=== PATIENT | female | born 1995 | race Caucasian/White ===

== ENCOUNTER 2021-10-24 08:44 | Outpatient (CLI) | payer SELFPAY ==
[2021-10-24 10:13] LABS: HCG Quantitative 83.13 mIU/mL
[2021-10-24 10:51] LABS: Progesterone 25.47 ng/mL
== END 2021-10-24 08:45 | disposition home or self-care (01) ==
PROVIDERS: Visit Provider Midwife
DX: O46.90 Antepartum hemorrhage, unspecified, unspecified trimester (principal); Z3A.00 Weeks of gestation of pregnancy not specified
CPT/HCPCS: 36415; 84144; 84702

== ENCOUNTER 2021-10-26 08:43 | Outpatient (CLI) | payer SELFPAY ==
[2021-10-26 10:28] LABS: Progesterone 21.12 ng/mL
== END 2021-10-26 08:44 | disposition home or self-care (01) ==
PROVIDERS: Visit Provider Midwife
DX: Z01.89 Encounter for other specified special examinations (principal)
CPT/HCPCS: 84144; 84702

== ENCOUNTER 2021-11-14 14:22 | Outpatient (CLI) | payer SELFPAY ==
--- NOTE | 2021-11-14 14:31 | US_ITS ---
WS: [id number] ULTRASOUND EARLY TECHNIQUE: Transabdominal sonography of the pelvis was performed. Followed by transvaginal sonography to better evaluate the uterus and ovaries. CLINICAL INFORMATION: DATING LMP: 09/19/2021 Beta hCG: Unknown. COMPARISON: None. FINDINGS: UTERUS AND GESTATIONAL SAC Intrauterine gestations: Single interuterine gestation with pole and cardiac activity. Estimated gestational age: 6w4d Estimated delivery July 06, 2022 Yolk sac: 0.3 cm. Yznaga rump length (CRL): 0.7 cm. heart motion: 122 BPM. Subchorionic hemorrhage: None. Normal cervix. Small amount of complex fluid or blood products in the endometrium measuring 1.4 x 0.3 x 0.3 cm. Adryan mmend short interval follow-up. OVARIES Right ovary: Normal. Left ovary: Complex left ovarian cyst with a few septations measuring 1.6 x 1.4 x 1.5 cm FREE FLUID Small amount of fluid about the left ovary. US/US OB <=14 wk fetus w transvag IMPRESSION: 1. Single live intrauterine with pole and cardiac activity. 2. Estimated gestational age; 6w4d 3. Small amount of complex fluid or blood products in the endometrium measurin g 1.4 x 0.3 x 0.3 cm. Recommend short interval follow-up. 4. Complex left ovarian cyst with a few septations measuring 1.6 x 1.4 x 1.5 c m. Normal right ovary.
== END 2021-11-14 14:23 | disposition home or self-care (01) ==
PROVIDERS: Visit Provider Family Medicine
DX: Z34.91 Encounter for supervision of normal pregnancy, unspecified, first trimester (principal); Z3A.01 Less than 8 weeks gestation of pregnancy
CPT/HCPCS: 76801; 76817

== ENCOUNTER 2021-11-21 14:47 | Outpatient (CLI) | payer OTHER, SELFPAY ==
--- NOTE | 2021-11-21 14:52 | US_ITS ---
WS: [id number] EARLY OBSTETRICAL ULTRASOUND (<14 WEEKS). HISTORY: SUPERVISION OF NORMAL 1ST TRIMESTER COMPARISON: 11/14/2021 Single intrauterine gestational sac is identified. Cardiac activity at 153 BPM. Long View-rump length abhishek sures 1.4 cm which corresponds to a gestation of 7w5d. Normal-appearing yolk sac and amnion demonstra mario alberto. Tinysubchorionic hemorrhage.Near complete resolution of the subchorionic hemorrhage described on the prior study. This area now measures 5 x 7 x 3 mm. No free fluid. Minimally complex cyst in the LEFT ovary consistent with corpus luteum of . Cyst measures 1. 4 x 1.5 x 1.6 cm. Overall corpus luteum has slightly decreased in size since the prior study. US/US OB <=14 wk fetus w transvag IMPRESSION: 1. Single intrauterine gestation of 7 weeks 5 days with an EDC of 07/05/2022. 2. Resolving subchorionic hemorrhage. Very tiny subchorionic hemorrhage measur es 5 x 7 x 3 mm today.
== END 2021-11-21 14:48 | disposition home or self-care (01) ==
LOC: RAD 14:50
PROVIDERS: Visit Provider Family Medicine
DX: Z34.91 Encounter for supervision of normal pregnancy, unspecified, first trimester (principal)
CPT/HCPCS: 76801; 76817

== ENCOUNTER 2022-02-22 06:52 | Emergency (ER) | payer OTHER, SELFPAY ==
[2022-02-22 06:55] VITALS: BP 125/86; PULSE 95; RESP 18; TEMP 36.6; O2SAT 100; BMI 25.2
--- NOTE | 2022-02-22 07:00 | USCV_ITS ---
Sandy Colon Age: 26 Gender: F : 1995 Exam Date: 02/22/2022 07:46 Ordering Phys: Blaine Charles DO Technologist: QASIM Exam Location: [facility] [place] Indication: Patient is 20 weeks . Noticed LLE edema x 24 hrs. No hx DVT. HISTORY: Patient is 20 weeks . Noticed LLE edema x 24 hrs. No hx DVT. PROCEDURES: Venous duplex imaging was performed in bilateral lower extremities. The venous duplex Doppler examination of both lower extremities was performed in the standard fashion. The following venous structures were evaluated: common femoral vein, profunda vein, proximal portion of the greater saphenous vein, superficial femoral vein, and the popliteal vein. In addition, the posterior tibial and peroneal veins were evaluated. FINDINGS: Extensive occlusive DVT left lower extremity from the iliac vein trhough the distal SFA. Acute DVT in the profunda and junction of GSV. Distal to the knee no DVT on the left. No DVT right lower extremity. CONCLUSIONS Acute extensive left DVT as above. Dr. Marisol Cortes DO (Electronically Signed) Final Date: 22 February 2022 09:15 S
[2022-02-22 07:12] VITALS: BP 125/86; PULSE 95; RESP 18; TEMP 36.6; O2SAT 100
--- NOTE | 2022-02-22 07:36 | W.ED.EXTPRO ---
HPI - Extremity Problem General: Chief complaint: Extremity Problem,Nontraumatic Stated complaint: Left leg groin pain Time Seen by Provider: 02/22/22 07:00 Source: patient Mode of arrival: ambulatory Limitations: no limitations History of Present Illness: 26-year-old female who is G1, P0 at 20 weeks 6 days gestation reportedly confirmed by ultrasound. She is receiving care through [facility] in [place]. Patient presents emergency room with complaint of left lower leg swelling and aching began yesterday. 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 She denies any shortness of breath or chest pain she not previously had any DVTs or thrombosis of any kind she is not on any anticoagulation. MD Complaint: extremity swelling Onset (ago): day(s) Pain Consistency: constant Location: left and lower extremity Quality: aching Relieving factors: nothing Exacerbating factors: nothing Associated symptoms: Deny arthralgias, chest pain, fever(s), myalgias, rash or short of breath Context: other (Currently at 20 weeks 6 days) Review of Systems Const: Denies: fever(s), chills or body aches ENMT: Denies: throat pain, ear or mastoid pain, nasal discharge or nasal congestion Card: Denies: chest pain Resp: Denies: dyspnea, productive cough or non-productive cough GI: Denies: abdominal pain, nausea, vomiting, hematemesis, coffee ground emesis, diarrhea, constipation, bloating, hematochezia or melena : Denies: flank pain, difficulty voiding, dysuria, urinary frequency or urinary urgency Skin/Breast: Denies: rash [facility] PFSH: Medical History Surgical History No significant past surgical history Social History Smoking and tobacco status: never smoked Alcohol intake: never Physical Exam Const: COMMON NORMALS: no acute distress GENERAL APPEARANCE: cooperative and comfortable ORIENTATION/CONSCIOUSNESS: Yes awake, Yes oriented to person, Yes oriented to place and Yes oriented to time HENMT: COMMON NORMALS: normocephalic, atraumatic and hearing grossly normal bilaterally HEAD & SCALP: normocephalic and atraumatic Neck/C-Spine: COMMON NORMALS: no JVD Resp: COMMON NORMALS: normal respiratory effort, No retractions, No use of accessory muscles and clear to auscultation bilaterally AUSCULTATION: clear to auscultation bilaterally Cardio: COMMON NORMALS: no JVD, regular rate, regular rhythm and No murmurs present (Cardio) RATE: regular rate RHYTHM: regular rhythm GI: COMMON NORMALS: Soft to palpation and No hepatosplenomegaly present AUSCULTATION: Yes normoactive bowel sounds PALPATION: Yes Soft to palpation, No Tenderness to palpation present (GI), No Guarding due to palpation present (GI) and Yes No hepatosplenomegaly present OTHER: Abdominal exam consistent with 20-week with fundus of the uterus palpable at the umbilicus Extremity: COMMON NORMALS: normal to inspection, capillary refill normal and no calf tenderness GENERAL: Yes edema (Mild swelling left lower extremity no pitting edema) OTHER: Negative Homans' sign Neuro: SENSORIUM/ORIENTATION: Yes oriented to person, Yes oriented to place and Yes oriented to time Skin: COMMON NORMALS: no rashes or lesions noted GENERAL SKIN EXAM: no rashes or lesions noted Course Vital Signs: Vital signs: Vital Signs Temperature 97.9 F 02/22/22 07:12 Pulse Rate 91 02/22/22 09:00 Respiratory Rate 16 02/22/22 09:00 Blood Pressure 118/78 02/22/22 09:00 Pulse Oximetry 98 02/22/22 09:00 MDM - Extremity (Nontraumatic) Medical Decision Making Ultrasound confirms DVT. Is actually rather extensive. Patient has not had any recent surgery she is remained active she is not on any hormone therapy. No obvious precipitating cause. We will start her on Lovenox 1 mg/kg twice daily. Patient has been seeing a manufacture specialist at this point we will get her set up to see one of the obstetricians for management further evaluation and precipitating cause Long lengthy discussion with the patient reviewed indications for return patient expressed understanding arrangements made for initial evaluation by obstetrics within the week. Did discuss with Dr. Nassar who is on-call for OB today. Medical Records I reviewed the patient's medical records. Lab Data I reviewed the patient's lab results. : 02/22/22 07:26 04/20/22 07:26 Laboratory Results WBC 10.0 10^3/uL (4.0-10.0) 02/22/22 07: RBC 3.63 10^6/uL (4.1-5.3) L 02/22/22 07: Hgb 11.0 g/dL (11.5-15.3) L 02/22/22 07: Hct 33.2 % (37.0-47.0) L 02/22/22 07: MCV 91.5 fl (81-99) 02/22/22 07: MCH 30.3 pg (28.0-34.0) 02/22/22 07: MCHC 33.1 g/dL (30.0-36.0) 02/22/22 07: RDW 13.0 % (12.1-15.1) 02/22/22 07: Plt Count 244 10^3/cmm (130-400) 02/22/22: MPV 10.3 fL (7.4-10.4) 02/22/22 07: Neut % (Auto) 77.7 % 02/22/22 07: Lymph % (Auto) 12.8 % 02/22/22 07: Sioux % (Auto) 7.1 % 02/22/22 07: Eos % (Auto) 1.2 % 02/22/22 07: Baso % (Auto) 0.6 % 02/22/22: Neut # (Auto) 7.75 10^3/uL (1.8-7.7) H 02/22/22 07: Lymph # (Auto) 1.3 10^3/uL (0.8-4.8) 02/22/22 07: Sioux # (Auto) 0.7 10^3/uL (0.2-0.9) 02/22/22 07: Eos # (Auto) 0.1 10^3/uL (0.0-0.8) 02/22/22 07: Baso # (Auto) 0.1 10^3/uL (0.0-0.1) 02/22/22: Nucleated RBC % (auto) 0 % 02/22/22 07:26 Nucleated RBCs # 0.0 /100WBC 02/22/22 07:26 PT 13.80 SECONDS (12.1-14.9) 02/22/22 07:26 INR 1.03 (0.8-1.2) 02/22/22 07:26 APTT 30.1 SECONDS (23.9-36.7) 02/22/22 07:26 Sodium 135 mmol/L (136-145) L 02/22/22 07:26 Potassium 3.3 mmol/L (3.5-5.1) L 02/22/22 07:26 Chloride 103 mmol/L (98-107) 02/22/22 07:26 Carbon Dioxide 21 mmol/L (22-29) L 02/22/22 07:26 Anion Gap 14.3 (5-19) 02/22/22 07:26 BUN 5 mg/dL (6-20) L 02/22/22 07:26 Creatinine 0.4 mg/dL (0.5-0.9) L 02/22/22 07:26 GFR Calculation 192.9 mL/min (90-130) H 02/22/22 07:26 Glucose 91 mg/dL (65-115) 02/22/22 07:26 Calculated Osmolality 277 mOsm/kg (285-295) L 02/22/22 07:26 Calcium 8.8 mg/dL (8.5-10.5) 02/22/22 07:26 Total Bilirubin 0.4 mg/dL (0.15-1.2) 02/22/22 07:26 AST 26 U/L (0-32) 02/22/22 07:26 ALT 18 U/L (0-33) 02/22/22 07:26 Alkaline Phosphatase 69 IU/L (35-105) 02/22/22 07:26 Total Protein 6.1 g/dL (6.6-8.7) L 02/22/22 07:26 Albumin 3.4 g/dL (3.5-5.2) L 02/22/22 07:26 Globulin 2.7 g/dL (1.3-4.6) 02/22/22 07:26 Discharge Plan Discharge Patient Disposition: Home Clinical Impression: , Deep vein thrombosis of lower extremity Condition: Stable Prescriptions: New Lovenox 80 mg/0.8 mL syringe 80 mg SUBCUT Q12H Qty: 8 6RF Rx Instructions: DVT Discharge Orders: Discharge ED (Routine); Ordered 02/22/22 Ordered By: Blaine Charles Referrals: Eloise Schaffer MD [Physician] - (establish OB care - LE DVT. May see midlevel at first visit.) Discharge Diet: Usual diet Discharge Activity: Increase activity as tolerated Patient Instructions: Opioid Safety Coding Level of Care Code ED Bindery Cutter Operator for Chg Fwd Exam Comprehensive
[2022-02-22 07:54] LABS: Alanine Aminotransferase 18 U/L (0-33); Albumin Level 3.4 g/dL (3.5-5.2); Alkaline Phosphatase 69 IU/L (35-105); Anion Gap 14.3 (5-19); Aspartate Amino Transferase 26 U/L (0-32); Blood Urea Nitrogen 5 mg/dL (6-20); Calcium 8.8 mg/dL (8.5-10.5); Carbon Dioxide 21 mmol/L (22-29); Chloride 103 mmol/L (98-107); Globulin 2.7 g/dL (1.3-4.6); Glomerular Filtration Rate 192.9 mL/min (90-130); Glucose 91 mg/dL (65-115); Osmolality Calculated 277 mOsm/kg (285-295); Potassium 3.3 mmol/L (3.5-5.1); Sodium 135 mmol/L (136-145); Total Bilirubin 0.4 mg/dL (0.15-1.2); Total Protein 6.1 g/dL (6.6-8.7)
[2022-02-22 08:01] LABS: Basophils # 0.1 10^3/uL (0.0-0.1); Basophils % 0.6 %; Eosinophils # 0.1 10^3/uL (0.0-0.8); Eosinophils % 1.2 %; Hematocrit 33.2 % (37.0-47.0); Lymphocytes # 1.3 10^3/uL (0.8-4.8); Lymphocytes % 12.8 %; Mean Corpuscular HGB Conc 33.1 g/dL (30.0-36.0); Mean Corpuscular Hemoglobin 30.3 pg (28.0-34.0); Mean Corpuscular Volume 91.5 fl (81-99); Mean Platelet Volume 10.3 fL (7.4-10.4); Monocytes # 0.7 10^3/uL (0.2-0.9); Monocytes % 7.1 %; Neutrophils # 7.75 10^3/uL (1.8-7.7); Neutrophils % 77.7 %; Nucleated Red Blood Cells % 0 %; Platelet Count 244 10^3/cmm (130-400); Red Blood Count 3.63 10^6/uL (4.1-5.3)
[2022-02-22 08:10] LABS: INR 1.03 (0.8-1.2); Partial Thromboplastin Time 30.1 SECONDS (23.9-36.7)
[2022-02-22 09:00] VITALS: BP 118/78; PULSE 91; RESP 16; O2SAT 98
[2022-02-22] MEDS: enoxaparin 80 mg/0.8 mL Syringe 70 MG SUBCUT (09:27)
--- NOTE | 2022-02-22 10:10 | DCPLANNER ---
Addendum entered by Cathy Bailey 03/08/22 21:33: Patient had a follow up appointment scheduled with [facility] - patient did attend appointment. Addendum entered by Cathy Bailey 02/23/22 07:44: Patient has a follow up appointment scheduled for Sunday, March 01, 2022 at 2:[address] Nassar at [facility]. Clinic will call patient with appointment information. Original Note: global marketing manager was asked to schedule a follow up appointment for patient with [facility]. global marketing manager called the [facility] care clinic, spoke with Tao, gave clinic patients information. global marketing manager was told that patients information would be printed and reviewed. Clinic will call patient with appointment information.
== END 2022-02-22 10:39 | disposition home or self-care (01) ==
PROVIDERS: Emergency Provider Family Medicine
DX: O22.32 Deep phlebothrombosis in pregnancy, second trimester (principal); M79.89 Other specified soft tissue disorders; I82.422 Acute embolism and thrombosis of left iliac vein; Z3A.20 20 weeks gestation of pregnancy
CPT/HCPCS: 80053; 85025; 85610; 85730; 93970; 96372; 99283; J1650

== ENCOUNTER → 2022-03-01 14:01 | Outpatient (BNVA) | payer OTHER, SELFPAY | PROVIDERS: Visit Provider Obstetrics & Gynecology | DX: Z34.90 Encounter for supervision of normal pregnancy, unspecified, unspecified trimester (principal); I82.409 Acute embolism and thrombosis of unspecified deep veins of unspecified lower extremity; Z3A.00 Weeks of gestation of pregnancy not specified | CPT/HCPCS: 81291; 84315; 85210; 85300; 85613; 85730 ==

== ENCOUNTER → 2022-04-14 14:12 | Outpatient (BNVA) | payer OTHER, SELFPAY | PROVIDERS: Visit Provider Obstetrics & Gynecology | DX: O09.899 Supervision of other high risk pregnancies, unspecified trimester (principal); Z67.91 Unspecified blood type, Rh negative; O26.899 Other specified pregnancy related conditions, unspecified trimester; Z3A.00 Weeks of gestation of pregnancy not specified | CPT/HCPCS: 81000; 82950; 85025; 86850 ==

== ENCOUNTER 2022-05-11 14:21 | Outpatient (CLI) | payer OTHER, SELFPAY ==
--- NOTE | 2022-05-11 14:27 | US_ITS ---
WS: [id number] BIOPHYSICAL PROFILE AND LIMITED OB. AMNIOTIC FLUID INDEX. HISTORY: O09.899 - Supervision of other high risk pregnancies, COMPARISON: 11/14/2021 and 11/21/2021 Presentation: Vertex. Cervix: Closed and normal length. Placenta: Anterior, no previa or abruption. Grade: 3 HEART: FHR of 136BPM. measurements: BPD = 8.6 cm = 34w3d; 96 percentile for age. HC = 31.1 cm = 34w5d; 84th percentile for age. AC = 28.3 cm = 32w2d; 59th percentile for age. FL = 6.3 cm = 32w4d; 55th percentile for age. JAYA: 15.8 centimeters; 50th percentile. EFW: 2063g; 71st %. AGA by ultrasound: 33w4d ARCENIO by ultrasound: 06/25/2022 Measurements are near concordant. Head circumference and BPD are measuring slightly greater than the abdominal circumference for age. Biophysical profile: Parameters are as follows: Breathin Movement: 2 Tone: 2 Fluid volume: 2 US/US OB BPP wo NST [id number] IMPRESSION: 1. Biophysical profile score: 8/8. 2. Single intrauterine gestation of 33w4d and 06/25/2022. Biometry measuring 10 days greater than age than expected as compared to the first trimester ultraso und. 3. BPD and head circumference measuring approximately 2 weeks greater than the head measurements. Continued close follow-up for asymmetric growth retardation. 4. Biophysical profile 8 out of 8. 5. Amniotic fluid index at the 50th percentile.
== END 2022-05-11 14:22 | disposition home or self-care (01) ==
PROVIDERS: Visit Provider Obstetrics & Gynecology
DX: O09.899 Supervision of other high risk pregnancies, unspecified trimester (principal); Z3A.33 33 weeks gestation of pregnancy
CPT/HCPCS: 76819; 81000; 87086

== ENCOUNTER 2022-05-25 07:09 | Outpatient (CLI) | payer OTHER, SELFPAY ==
--- NOTE | 2022-05-25 07:15 | US_ITS ---
WS: [id number] BIOPHYSICAL PROFILE AMNIOTIC FLUID HISTORY: O22.30 - Deep phlebothrombosis in , unspecified ... COMPARISON: 05/16/2022 Cardiac activity: 150 bpm. Cervix: closed. Placenta: Anterior, no previa or abruption. Placenta grade: Late grade 2. Parameters are as follows: Breathin Movement: 2 Tone: 2 Fluid volume: 2 Amniotic fluid index: 16.1 cm which is near the 50th percentile. Largest vertical pocket of amniotic fluid is 4.9 cm. US/US OB BPP wo NST [id number] IMPRESSION: 1. Biophysical profile score: 8/8. 2. Anterior placenta, grade 2.
== END 2022-05-25 07:10 | disposition home or self-care (01) ==
LOC: RAD 07:09
PROVIDERS: Visit Provider Obstetrics & Gynecology
DX: O22.30 Deep phlebothrombosis in pregnancy, unspecified trimester (principal); O09.899 Supervision of other high risk pregnancies, unspecified trimester
CPT/HCPCS: 76819; 84315; 85025

== ENCOUNTER → 2022-06-08 15:09 | Outpatient (BNVA) | payer OTHER, SELFPAY | PROVIDERS: Visit Provider Obstetrics & Gynecology | DX: O09.899 Supervision of other high risk pregnancies, unspecified trimester (principal); Z3A.00 Weeks of gestation of pregnancy not specified | CPT/HCPCS: 82950; 84315; 87081; 87086 ==

== ENCOUNTER 2022-06-15 06:00 | Outpatient (CLI) | payer OTHER, SELFPAY | END 2022-06-15 06:01 | disposition home or self-care (01) | LOC: RAD 08-31 07:22 | PROVIDERS: Visit Provider Obstetrics & Gynecology | DX: O09.899 Supervision of other high risk pregnancies, unspecified trimester (principal) | CPT/HCPCS: 84315; 87086 ==

== ENCOUNTER 2022-06-28 22:22 | Inpatient (IN) | payer OTHER, SELFPAY ==
[2022-06-28 21:51] VITALS: BP 113/58; PULSE 89
[2022-06-28 22:16] VITALS: RESP 18
[2022-06-28 22:27] VITALS: BP 121/69; PULSE 79
[2022-06-28 23:02] VITALS: BMI 26.2
[2022-06-28 23:18] VITALS: BP 112/73; PULSE 72
[2022-06-28] MEDS: ondansetron 2 mg/ML SDV 2 mL 4 MG IVP (23:36)
--- NOTE | 2022-06-28 23:52 | PC.NURSE ---
This nurse at bedside going over plan with patient and significant other. Pt states she spoke with Dr. Nassar about eating and drinking while in labor and it was okay'd through Dr. Nassar. This nurse reported to the pt that it was unsafe to do so and anesthesia is not okay with this practice due to the possibility of aspiration when intubating. Pt reported she understands the risks and understands what this nurse is saying but states she is going to eat when she wants.
[2022-06-29] VITALS (10 sets, daily range): BP systolic 109–131; BP diastolic 58–76; PULSE 63–81; RESP 16; TEMP 36.5
[2022-06-29 00:08] LABS: Basophils # 0.1 10^3/uL (0.0-0.1); Basophils % 0.5 %; Eosinophils # 0.1 10^3/uL (0.0-0.8); Eosinophils % 0.7 %; Hematocrit 35.3 % (37.0-47.0); Hemoglobin 11.7 g/dL (11.5-15.3); Lymphocytes % 24.6 %; Mean Corpuscular HGB Conc 33.1 g/dL (30.0-36.0); Mean Corpuscular Hemoglobin 28.1 pg (28.0-34.0); Mean Corpuscular Volume 84.9 fl (81-99); Mean Platelet Volume 12.6 fL (7.4-10.4); Monocytes % 8.2 %; Neutrophils # 7.71 10^3/uL (1.8-7.7); Neutrophils % 63.9 %; Nucleated Red Blood Cells % 0 %; Platelet Count 289 10^3/cmm (130-400); Red Blood Count 4.16 10^6/uL (4.1-5.3); Red Cell Distribution Width 14.2 % (12.1-15.1); White Blood Count 12.1 10^3/uL (4.0-10.0)
[2022-06-29] MEDS: alum-mag-hydroxide-sime 30 mL UDC PO (00:47)
[2022-06-29] MEDS: lactated ringers 1,000 ML 999 ML IV (01:50)
--- NOTE | 2022-06-29 04:00 | PM.OBGYHP ---
Providers/Chief Complaint Admitting Physician: Enid Cortes MD Primary RECORD RETRIEVAL SPECIALIST: Mahogany Nassar MD Chief Complaint: POSSIBLE ROM HPI RECORD RETRIEVAL SPECIALIST History of Present Illness Sandy Colon is a 27 year old 000 with an IUP 38W6D who presented with a complaint of LOF and painful uterine contractions that occur every 3-5 minutes. She rates her pain an 8 out of 10. She initially experienced loss of fluid at this evening (06/28/2022). This is complicated by DVT at 20 weeks gestation and associated MTFHR deficiency. She is currently being anticoagulated with heparin. Prior to 36 weeks she was being anticoagulated with Lovenox. Initially received care with a manager of community relations but was transferred to the care of Dr. Nassar after the diagnosis of MTHFR deficiency. She is GBS negative. Tonight she is accompanied by her , Danny and her mother, Bri. The couple is expecting a son. Anticipates circumcision for their son at approximately 8 days of age. Anticipates breast-feeding exclusively and resuming natural family planning. Present Details : 1 Para: 0 Medical complications OB: other Other Details: Experienced a DVT during this gestation at 20 weeks and was found to have MT FHR deficiency Labs Rubella: Immune RPR: Negative GBS: Negative Review of Systems Narrative: Endorses painful uterine contraction, endorses loss of fluid, denies vaginal bleeding, denies headache, denies right upper quadrant pain, denies blurred vision or seeing spots in her vision, In mild distress secondary to pain however denies anxiety, denies depression Const: Reports: fatigue and malaise; Denies: fever(s) or chills ENMT: Denies: throat pain, odynophagia, hoarseness or ear or mastoid pain Card: Denies: chest pain, palpitations, irregular heart rhythm, edema, swelling of feet/ankles, dyspnea on exertion or orthopnea Resp: Denies: dyspnea, productive cough or non-productive cough GI: Reports: vomiting; Denies: nausea, diarrhea or constipation : Denies: flank pain, difficulty voiding, dysuria or urinary frequency Musc: Denies: back pain, extremity swelling or limited range of motion Skin/Breast: Reports: pruritus; Denies: rash Neuro: Denies: headache(s) Psych: Reports: depression; Denies: anxiety Jayson/Lymph: Reports: easy bruising Medications/Allergies Home Medications Medication Instructions Recorded Confirmed Last Taken Type [id number] 400 mcg-om3 35 mg-dha 25 1 tab PO DAILY 03/01/22 06/28/22 06/27/22 History mg-epa 5 mg-fish oil chewable tablet levomefolate 15 mg-algal oil 1 cap PO DAILY #90 caps 03/17/22 06/28/22 06/28/22 Rx 90.314 mg capsule (Deplin (algal oil)) acetaminophen 325 mg tablet 650 mg PO Q6H PRN mild pain for 06/30/22 Unknown Rx temp >100.4. 60 days #40 tabs docusate sodium 100 mg capsule 100 mg PO BID 30 days #60 caps 06/30/22 Unknown Rx enoxaparin 80 mg/0.8 mL 70 mg (0.7 mL) SUBCUT Q12H 42 days 06/30/22 Unknown Rx subcutaneous syringe #58.8 mL ibuprofen 800 mg tablet 800 mg PO TID 60 days #180 tabs 06/30/22 Unknown Rx modified lanolin 100 % topical 1 applic topical PRN PRN Dryness 06/30/22 Unknown Rx cream (Lanolin (HPA)) 365 days #1 g multivitamin no.51-ferrous 1 cap PO DAILY 365 days #90 caps 06/30/22 Unknown Rx fumarate 106.5 mg-folic acid 1 mg capsule (-U) Allergies Allergy/AdvReac Type Severity Reaction Status Date / Time No Known Allergies Allergy Verified 06/28/22 23:05 PFS RECORD RETRIEVAL SPECIALIST PFSH: Medical History Surgical History No significant past surgical history Family History Family/Other Breast cancer maternal aunt, diagnosed in her 50s Brother Diabetes x2 Sister Diabetes Father Hyperlipidemia Denies family history of Colon cancer Ovarian cancer Heart disease Hypertension Uterine cancer Thyroid condition Stroke Social History Smoking and tobacco status: never smoked Alcohol intake: never Contraception: Contraception History Comment: Natural family planning History History History 1 Term Miscarriages/Ectopic Living Children Past Pregnancies Del. Date GA/Weeks Outcome Route Wt Inf Gender Labor Lgth Comp. Anesthesia Location Unknown 39 live - full term Vaginal 8 lb 1.103 oz 12 hours 37 minutes [facility] ARCENIO Calculator Estimated Delivery Date Method Current WG Current Estimate 07/06/22 Ultrasound #1 39w 4d Other Estimates 06/26/22 LMP (Certain) 41w 0d Expected Delivery Route/Plan Vitals/I&O/Wt Last Vital Signs Selected Entries 06/29/22 11:08 06/29/22 11:23 06/29/22 11:38 Temperature Pulse Rate Respiratory Rate Blood Pressure 123/72 118/59 109/62 Pulse Oximetry 06/29/22 20:38 06/30/22 04:05 06/29/22 20:38 Temperature 97.7 F 97.8 F 97.7 F Pulse Rate 63 53 L 63 Respiratory Rate 16 19 H 16 Blood Pressure 109/62 Pulse Oximetry 99 06/29/22 06/29/22 06/29/22 06:59 14:59 22:59 Intake Total 500 / 500 500 / 500 Balance 500 / 500 500 / 500 Weight last 48 hrs Weight 158 lb Physical Exam Narrative: Mild distress secondary to 8 out of 10 pain : MANUAL OB EXAM: dilated, effaced, station and other (6 / 90 / -2 / Cephalic / grossly ruptured) Data : 06/29/22 22:15 A&P Assessment and plan (1) MTHFR deficiency complicating : Status: Acute (2) Rh negative state in antepartum period: Status: Acute (3) Alteration in comfort associated with uterine contractions: Status: Acute (4) 39 weeks gestation of : Status: Acute (5) SROM (spontaneous rupture of membranes): Now in active labor. Category I FHT and anticipate . Declines Epidural at this time. Status: Acute Attestations Medical Necessity Statement*: Management of labor, delivery, and establish anticoag state Coding Level of Care Code Acute Sports Leadership Instructor for g Fwd Diagnoses MTHFR deficiency complicating O99.280; E72.12 Rh negative state in antepartum period O26.899; Z67.91 Alteration in comfort associated with uterine contractions N85.8 39 weeks gestation of Z3A.39 SROM (spontaneous rupture of membranes)
--- NOTE | 2022-06-29 07:46 | PM.OBGYPN ---
POT FIREMAN Subjective Subjective: Interval history: Hospital Course Hospital Course Sandy is a 27 y/o 001 term. This gestation has been complicated by DVT at ~ 20 weeks gestation, newly diagnosed MTFHR deficiency, and Rh negative status. Initially admitted after experiencing term SROM and spontaneous onset of labor. Expecting a son, Marco Colon. Now experiencing significant pain while still declines epidural is willing to accept IV fentanyl. Labor: Station: +2 Amniotic Membrane Status: Leaking Monitor Mode: External Contraction Pattern: Regular Status: Category I Vitals/I&O/Wt Last Vital Signs Temp Pulse Resp BP Pulse Ox O2 Del Method Selected Entries 06/28/22 21:51 Pulse Rate 89 Blood Pressure 113/58 06/29/22 06/30/22 06/30/22 22:59 06:59 14:59 Intake Total 0 / 500 360 / 860 Output Total 550 / 550 Balance -550 / -50 360 / 310 Weight last 48 hrs Weight 158 lb Physical Exam Narrative: SVE: 8/80/0 Data : 06/29/22 22:15 A&P Assessment and plan (1) SROM (spontaneous rupture of membranes): Continuous heart tone monitoring Fentanyl 100 mcg Anticipate Status: Acute (2) Alteration in comfort associated with uterine contractions: Status: Acute (3) 39 weeks gestation of : Status: Acute (4) Rh negative state in antepartum period: Status: Acute Attestations Medical Necessity Statement*: Labor management, delivery, achieving anticoagulant both state secondary to MTFHR deficiency Coding Level of Care Code Acute Railway Signal Electrician for [facility] Fwd Diagnoses SROM (spontaneous rupture of membranes) Alteration in comfort associated with uterine contractions N85.8 39 weeks gestation of Z3A.39 Rh negative state in antepartum period O26.899; Z67.91
[2022-06-29] MEDS: fentaNYL 50 mcg/mL INJ 2mL 100 MCG IVP (07:54)
[2022-06-29] MEDS: fentaNYL 50 mcg/mL INJ 2mL IVP (09:58)
[2022-06-29] MEDS: lidocaine 2% INJ 20 mL INJECTION (10:00)
[2022-06-29] MEDS: oxytocin 30 UNIT/500 ML BAG 600 UNIT IV (10:05)
--- NOTE | 2022-06-29 10:40 | PM.OBGYHP ---
Providers/Chief Complaint Admitting Physician: Enid Cortes MD Chief Complaint: POSSIBLE ROM HPI COMBUSTION ENGINEER History of Present Illness Sandy Colon is a 27 year old female Present Details : 1 Para: 0 Labs Rubella: Immune RPR: Negative GBS: Negative Medications/Allergies Home Medications Medication Instructions Recorded Confirmed Last Taken Type [id number] 400 mcg-om3 35 mg-dha 25 1 tab PO DAILY 03/01/22 06/28/22 06/27/22 History mg-epa 5 mg-fish oil chewable tablet levomefolate 15 mg-algal oil 1 cap PO DAILY #90 caps 03/17/22 06/28/22 06/28/22 Rx 90.314 mg capsule (Deplin (algal oil)) Heparin 18,000 unit SUBCUT DAILY 06/01/22 06/28/22 06/28/22 07:45 History Allergies Allergy/AdvReac Type Severity Reaction Status Date / Time No Known Allergies Allergy Verified 06/28/22 23:05 PFSH COMBUSTION ENGINEER PFSH: Medical History Surgical History No significant past surgical history Family History Family/Other Breast cancer maternal aunt, diagnosed in her 50s Brother Diabetes x2 Sister Diabetes Father Hyperlipidemia Denies family history of Colon cancer Ovarian cancer Heart disease Hypertension Uterine cancer Thyroid condition Stroke Social History Smoking and tobacco status: never smoked Alcohol intake: never History History History 1 Term Miscarriages/Ectopic Living Children Past Pregnancies Del. Date GA/Weeks Outcome Route Wt Inf Gender Labor Lgth Comp. Anesthesia Location Unknown 39 live - full term Vaginal 8 lb 1.103 oz 12 hours 37 minutes local [facility] ARCENIO Calculator Estimated Delivery Date Method Current WG Current Estimate 07/06/22 Ultrasound #1 39w 0d Other Estimates 06/26/22 LMP (Certain) 40w 3d Vitals/I&O/Wt Last Vital Signs Pulse 81 06/29/22 10:23 Resp 16 06/29/22 07:54 BP 131/66 06/29/22 10:38 O2 Del Method 06/28/22 23:47 06/28/22 06/29/22 06/29/22 22:59 06:59 14:59 Intake Total 500 / 500 Balance 500 / 500 Weight last 48 hrs Weight 158 lb Data : 06/28/22 22:30 Coding Level of Care Code Acute Platen Builder Up for Chg Akash
[2022-06-29] MEDS: lanolin oint 7 gm 1 APPLIC TOPICAL (13:07)
[2022-06-29] MEDS: benzocaine-menthol 78 gm Canister 1 SPRAY TOPICAL (13:07)
--- NOTE | 2022-06-29 14:22 | P.PCNOB_ITS ---
Delivery Note: Date of delivery: June 29, 2022 Pre-delivery diagnoses: * SROM * 39 weeks * MTHFR Deficiency * Rh negative status Post-delivery diagnoses: * Status post at term complicated by vaginal laceration * MTFHR * Rh negative status Procedure: with vaginal repair Delivering Physician: Enid Cortes MD Estimated blood loss (mL): 350 Findings: * Viable male , Marco Colon. * APGARS 8 at one and 9 at 5 minutes * Weights: 3660 grams and 8 lbs 1oz * Vaginal laceration repaired with 2-0 vicryl in the usual fashion Pre-Delivery Course: Sandy is a 27 y/o 001 on PPD#0 status post term without significant complications. This gestation has been complicated by DVT at ~ 20 weeks gestation, newly diagnosed MTFHR deficiency, and Rh negative status. Initially admitted after experiencing term SROM and spontaneous onset of labor. Went on to have a complicated by a vaginal laceration. Delivered a viable son, Marco Colon. Anticipate circumcision in one week. Anticipate resuming Natural Family Planning for anti-contraception method. Aware of cervical mucus fertility awareness method. Discharging on Lovenox BID for through 6 weeks . Anticipates exclusively breast-feeding. Delivery: Upon achieving complete dilation, 3+ station, and experiencing extreme pressure Sandy was placing a modified Arnol position. She was instructed on pushing and she pushed very effectively. With coaching the patient pushed and 's head to the perineum. The perineum appeared adequate. The patient pushed multiple times in the head crowned in the occiput anterior position. The anterior shoulder was delivered with a downward motion, posterior shoulder delivered with an upward motion, and the remainder of the 's body delivered without any difficulty. cried spontaneously and was placed on the mother's abdomen and resuscitated by the nurse. Delayed cord clamping was performed. Cord blood was obtained. Pitocin was administered and the placenta delivered spontaneously and was found to be intact and complete with a centrally inserted three-vessel cord. Post-Delivery Status: Sandy is a well and is coping well. FOB/ is present and supportive. History History History 1 Term Miscarriages/Ectopic Living Children Past Pregnancies Del. Date GA/Weeks Outcome Route Wt Inf Gender Labor Lgth Comp. Anesth esia Location Unknown 39 live - full term Vaginal 8 lb 1.103 oz 12 hours 37 minutes local [facility] A&P Assessment and plan (1) Care and examination immediately after delivery: Routine care Status: Acute (2) History of vaginal delivery: Postop day #0 plan for routine care Status: Acute (3) MTHFR deficiency complicating : Continue anticoagulation with Lovenox through 6 weeks Status: Acute Coding Level of Care Code Acute Medical Office Clerk for Chg Fwd Diagnoses Care and examination immediately after delivery Z39.0 History of vaginal delivery MTHFR deficiency complicating O99.280; E72.12
--- NOTE | 2022-06-29 16:25 | PM.OPHPUD ---
Labor & Delivery H&P Update Date of Procedure: June 29, 2022 Admission Diagnosis:
[2022-06-29] MEDS: ibuprofen 800 mg tablet PO ×2 (16:58→20:37)
[2022-06-29] MEDS: docusate sodium 100 mg Capsule PO (19:16)
[2022-06-29] MEDS: enoxaparin 80 mg/0.8 mL Syringe 70 MG SUBCUT (19:16)
[2022-06-29 22:31] LABS: Hematocrit 30.2 % (37.0-47.0); Hemoglobin 9.8 g/dL (11.5-15.3); Mean Corpuscular HGB Conc 32.5 g/dL (30.0-36.0); Mean Corpuscular Hemoglobin 27.8 pg (28.0-34.0); Mean Corpuscular Volume 85.6 fl (81-99); Mean Platelet Volume 11.6 fL (7.4-10.4); Platelet Count 278 10^3/cmm (130-400); Red Blood Count 3.53 10^6/uL (4.1-5.3); Red Cell Distribution Width 14.3 % (12.1-15.1)
[2022-06-30 04:05] VITALS: BP 98/60; PULSE 53; RESP 19; TEMP 36.6; O2SAT 99
[2022-06-30 07:40] VITALS: BP 100/47; PULSE 71; RESP 16; TEMP 36.7
[2022-06-30] MEDS: docusate sodium 100 mg Capsule PO (07:40)
[2022-06-30] MEDS: enoxaparin 80 mg/0.8 mL Syringe 70 MG SUBCUT (07:40)
[2022-06-30] MEDS: prenatal vitamin Capsule 1 CAP PO (07:40)
[2022-06-30] MEDS: ibuprofen 800 mg tablet PO (07:40)
--- NOTE | 2022-06-30 10:44 | PM.DCS ---
Discharge Providers Date of Admission: 06/28/22 22:22 Date of Discharge: June 30, 2022 Attending Provider at Admission: Enid Cortes MD Attending Provider at Discharge: Enid Cortes MD Reason for Visit Reason for Visit: POSSIBLE ROM Discharge Data Studies Completed and Pending Pending at discharge Category Date Time Status Complete Crossmatch Timed Lab 06/29/22 21:52 Ordered Maternal Hemorrhage Scrn Timed Lab 06/29/22 21:52 Ordered Retype for Patiets ABO/Rh Routine Lab 06/29/22 13:51 Ordered Rho D Immune Globulin Timed Lab 06/29/22 21:52 Ordered Laboratory Results WBC 26.0 10^3/uL (4.0-10.0) H 06/29/22 22:15 RBC 3.53 10^6/uL (4.1-5.3) L 06/29/22 22:15 Hgb 9.8 g/dL (11.5-15.3) L 06/29/22 22:15 Hct 30.2 % (37.0-47.0) L 06/29/22 22:15 MCV 85.6 fl (81-99) 06/29/22 22:15 MCH 27.8 pg (28.0-34.0) L 06/29/22 22:15 MCHC 32.5 g/dL (30.0-36.0) 06/29/22 22:15 RDW 14.3 % (12.1-15.1) 06/29/22 22:15 Plt Count 278 10^3/cmm (130-400) 06/29/22 22:15 MPV 11.6 fL (7.4-10.4) H 06/29/22 22:15 Neut % (Auto) 63.9 % 06/28/22 22:30 Lymph % (Auto) 24.6 % 06/28/22 22:30 [place] % (Auto) 8.2 % 06/28/22 22:30 Eos % (Auto) 0.7 % 06/28/22 22:30 Baso % (Auto) 0.5 % 06/28/22 22:30 Neut # (Auto) 7.71 10^3/uL (1.8-7.7) H 06/28/22 22:30 Lymph # (Auto) 3.0 10^3/uL (0.8-4.8) 06/28/22 22:30 [place] # (Auto) 1.0 10^3/uL (0.2-0.9) H 06/28/22 22:30 Eos # (Auto) 0.1 10^3/uL (0.0-0.8) 06/28/22 22:30 Baso # (Auto) 0.1 10^3/uL (0.0-0.1) 06/28/22 22:30 Nucleated RBC % (auto) 0 % 06/28/22 22:30 Nucleated RBCs # 0.0 /100WBC 06/28/22 22:30 Blood Type A Negative 06/28/22 22:30 Rho(D) Type Negative 06/28/22 22:30 Antibody Screen Negative 06/28/22 22:30 Vitals Last Vital Signs Temp 97.8 F 06/30/22 04:05 Pulse 53 L 06/30/22 04:05 Resp 19 H 06/30/22 04:05 BP 98/60 06/30/22 04:05 Pulse Ox 99 06/30/22 04:05 O2 Del Method 06/30/22 04:05 Discharge Plan Discharge Patient Disposition: Home Condition: Good Prescriptions: New docusate sodium 100 mg Capsule 100 mg PO BID 30 Days Qty: 60 0RF ibuprofen 800 mg Tablet 800 mg PO TID 60 Days Qty: 180 0RF Lanolin (HPA) 100 % Cream 1 applic topical PRN PRN (Reason: Dryness) 365 Days Qty: 1 0RF -U 106.5-1 mg Capsule 1 cap PO DAILY 365 Days Qty: 90 0RF acetaminophen 325 mg Tablet 650 mg PO Q6H PRN (Reason: mild pain for temp >100.4.) 60 Days Qty: 40 0RF enoxaparin 80 mg/0.8 mL Syringe 70 mg SUBCUT Q12H 42 Days Qty: 58.8 0RF Continued [id number] oil 400 mcg-35 mg -25 mg-5 mg tablet,chewable 1 tab PO DAILY levomefolate-algal oil [Deplin (algal oil)] 15-90.314 mg capsule 1 cap PO DAILY Qty: 90 12RF Discontinued Heparin 18,000 units 18,000 unit SUBCUT DAILY Discharge Orders: Discharge Order (Routine); Ordered 06/30/22 Ordered By: Enid Cortes Referrals: [facility] Providers [Provider Group] (Follow-up in two weeks for Blues screening, etc...) Still on anticoagulation until 6 weeks )) Discharge Diet: Usual diet Discharge Activity: Increase activity as tolerated Patient Instructions: Opioid Safety Activity Restrictions/Additional Instructions: Pelvic rest ( NOTHING per vagina x6 weeks after delivery) Keep legs closed as much as possible in order to facilitate healing Coding Level of Care Code Acute Chg FW DC note
--- NOTE | 2022-06-30 12:00 | P.DS_ITS ---
Discharge Providers Date of Admission: 06/28/22 22:22 Date of Discharge: June 30, 2022 Attending Provider at Admission: Enid Cortes MD Attending Provider at Discharge: Enid Cortes MD Primary Care Provider: Mahogany Nassar MD Diagnoses at Discharge Discharge Diagnosis (1) MTHFR deficiency complicating : Status: Acute (2) Rh negative state in antepartum period: Status: Acute (3) Care and examination immediately after delivery: Status: Acute (4) History of vaginal delivery: Details from hospital stay: Anemia Status: Acute (5) Acute anemia: Status: Acute Reason for Visit Reason for Visit: POSSIBLE ROM Brief History: SROM LABOR MANAGEMENT Hospital Course Hospital Course Sandy is a 27 y/o 001 on PPD#1 status post term without significant complications. This gestation has been complicated by DVT at ~ 20 weeks gestation, newly diagnosed MTFHR deficiency, and Rh negative status. Initially admitted after experiencing term SROM and spontaneous onset of labor. Went on to have a complicated by a vaginal laceration. Delivered a viable son, Marco Colon. Anticipate circumcision in one week. Anticipate resuming Natural Family Planning for anti-contraception method. Aware of cervical mucus fertility awareness method. Discharging on Lovenox BID for through 6 weeks . well, exclusively. Has met all milestones for discharge including but not limited to minimal lochia, no DUNCAN, voiding without difficulty, ambulating without dizziness, well, and requesting discharge. Asymptomatic acute anemia anticipated to resolve with dietary Fe. Physical Exam Const: COMMON NORMALS: no acute distress, average body habitus, no limitations, healthy appearing, alert and well nourished ORIENTATION/CONSCIOUSNESS: Yes oriented to person, Yes oriented to place and Yes oriented to time HENMT: COMMON NORMALS: normocephalic, moist oral mucous membranes and dentition normal HEAD & SCALP: normocephalic Eye: COMMON NORMALS: EOMs intact bilaterally and conjunctivae normal CONJUNCTIVA: Yes conjunctivae normal Neck/C-Spine: COMMON NORMALS: full ROM, supple and Thyroid normal THYROID: Thyroid normal Lymph: LYMPHATIC: no lymphadenopathy noted Chest: OTHER: No signs of engorgement, no broken skin Resp: EFFORT & INSPECTION: Yes able to speak in complete sentences, Yes symmetric chest movement, No respiratory distress and No labored Cardio: COMMON NORMALS: regular rate and regular rhythm RATE: regular rate RHYTHM: regular rhythm GI: COMMON NORMALS: Soft to palpation PALPATION: Yes Soft to palpation, No Tenderness to palpation present (GI), No Guarding due to palpation present (GI) and No Rigid due to palpation : COMMON NORMALS: Yes no CVA tenderness BLADDER/KIDNEY EXAM: Yes no CVA tenderness UTERUS PALPATION: No Uterus tender and Yes Other OB uterine findings (Firm fundus @ the umbilicus) Back/Pelvis: COMMON NORMALS: no CVA tenderness Extremity: COMMON NORMALS: normal to inspection, full ROM, no clubbing, cyanosis or edema and no calf tenderness Neuro: SENSORIUM/ORIENTATION: Yes alert, Yes oriented to person, Yes oriented to place and Yes oriented to time Psych: COMMON NORMALS: mental status grossly normal, Normal thought process present, cooperative, normal affect, speech normal, activity/motor behavior normal and denies suicidal ideation SPEECH: Yes normal speech THOUGHT PROCESS: Normal thought process present Skin: COMMON NORMALS: no rashes or lesions noted and turgor normal GENERAL SKIN EXAM: no rashes or lesions noted and turgor normal Discharge Data Studies Completed and Pending Pending at discharge Category Date Time Status Complete Crossmatch Routine Lab 06/28/22 22:30 Results Rho D Immune Globulin Routine Lab 06/28/22 22:30 Results Type and Screen Routine Lab 06/28/22 22:30 Results Laboratory Results WBC 26.0 10^3/uL (4.0-10.0) H 06/29/22 22:15 RBC 3.53 10^6/uL (4.1-5.3) L 06/29/22 22:15 Hgb 9.8 g/dL (11.5-15.3) L 06/29/22 22:15 Hct 30.2 % (37.0-47.0) L 06/29/22 22:15 MCV 85.6 fl (81-99) 06/29/22 22:15 MCH 27.8 pg (28.0-34.0) L 06/29/22 22:15 MCHC 32.5 g/dL (30.0-36.0) 06/29/22 22:15 RDW 14.3 % (12.1-15.1) 06/29/22 22:15 Plt Count 278 10^3/cmm (130-400) 06/29/22 22:15 MPV 11.6 fL (7.4-10.4) H 06/29/22 22:15 Neut % (Auto) 63.9 % 06/28/22 22:30 Lymph % (Auto) 24.6 % 06/28/22 22:30 [place] % (Auto) 8.2 % 06/28/22 22:30 Eos % (Auto) 0.7 % 06/28/22 22:30 Baso % (Auto) 0.5 % 06/28/22 22:30 Neut # (Auto) 7.71 10^3/uL (1.8-7.7) H 06/28/22 22:30 Lymph # (Auto) 3.0 10^3/uL (0.8-4.8) 06/28/22 22:30 [place] # (Auto) 1.0 10^3/uL (0.2-0.9) H 06/28/22 22:30 Eos # (Auto) 0.1 10^3/uL (0.0-0.8) 06/28/22 22:30 Baso # (Auto) 0.1 10^3/uL (0.0-0.1) 06/28/22 22:30 Nucleated RBC % (auto) 0 % 06/28/22 22:30 Nucleated RBCs # 0.0 /100WBC 06/28/22 22:30 Blood Type A Negative 06/28/22 22:30 Rho(D) Type Negative 06/28/22 22:30 Antibody Screen Negative 06/28/22 22:30 Screen Negative (Negative) 06/29/22 22:15 Vitals Last Vital Signs Temp 98.1 F 06/30/22 07:40 Pulse 71 06/30/22 07:40 Resp 16 06/30/22 07:40 BP 100/47 06/30/22 07:40 Pulse Ox 99 06/30/22 04:05 O2 Del Method 06/30/22 04:05 Discharge Plan Discharge Patient Disposition: Home Condition: Good Prescriptions: New docusate sodium 100 mg Capsule 100 mg PO BID 30 Days Qty: 60 0RF ibuprofen 800 mg Tablet 800 mg PO TID 60 Days Qty: 180 0RF Lanolin (HPA) 100 % Cream 1 applic topical PRN PRN (Reason: Dryness) 365 Days Qty: 1 0RF -U 106.5-1 mg Capsule 1 cap PO DAILY 365 Days Qty: 90 0RF acetaminophen 325 mg Tablet 650 mg PO Q6H PRN (Reason: mild pain for temp >100.4.) 60 Days Qty: 40 0RF enoxaparin 80 mg/0.8 mL Syringe 70 mg SUBCUT Q12H 42 Days Qty: 58.8 0RF Continued [id number]-qwg-jlw-vrum oil 400 mcg-35 mg -25 mg-5 mg tablet,chewable 1 tab PO DAILY levomefolate-algal oil [Deplin (algal oil)] 15-90.314 mg capsule 1 cap PO DAILY Qty: 90 12RF Discontinued Heparin 18,000 units 18,000 unit SUBCUT DAILY Discharge Orders: Discharge Order (Routine); Ordered 06/30/22 Ordered By: Enid Cortes Referrals: [facility] Providers [Provider Group] (Follow-up in two weeks for Blues screening, etc...) Still on anticoagulation until 6 weeks )) Discharge Diet: Usual diet Discharge Activity: Increase activity as tolerated Patient Instructions: Opioid Safety Activity Restrictions/Additional Instructions: Pelvic rest ( NOTHING per vagina x6 weeks after delivery) Keep legs closed as much as possible in order to facilitate healing Discharge Attestations Time Spent in Discharge Care*: greater than 30 min Specific Discharge Activities: educating patient, educating and/or supporting family/caregiver, documenting/other paperwork and evaluating patient/reviewing data Other discharge activites (optional): Contacting pharmacy Status at Discharge: Overall status at discharge: patient is back to baseline Quality Metrics Clinical Quality Measures [ No reported AMI, CVA or VTE this stay] Coding Level of Care Code Acute Chg FW DC note Diagnoses MTHFR deficiency complicating O99.280; E72.12 Rh negative state in antepartum period O26.899; Z67.91 Care and examination immediately after delivery Z39.0 History of vaginal delivery Acute anemia D64.9
[2022-06-30 12:25] VITALS: BP 105/64; PULSE 69; RESP 16; TEMP 36.6
[2022-06-30 13:49] VITALS: BP 105/64; PULSE 69; RESP 16; TEMP 36.6
== END 2022-06-30 13:35 | disposition home or self-care (01) | DRG 806 ==
LOC: OPOB 22:22 → OBGYN 22:22
PROVIDERS: Admitting Provider Obstetrics & Gynecology; Visit Provider Obstetrics & Gynecology
DX: O99.284 Endocrine, nutritional and metabolic diseases complicating childbirth (principal); E72.12 Methylenetetrahydrofolate reductase deficiency; Z37.0 Single live birth; O26.893 Other specified pregnancy related conditions, third trimester; Z67.11 Type A blood, Rh negative; O71.4 Obstetric high vaginal laceration alone; Z3A.39 39 weeks gestation of pregnancy; Z86.718 Personal history of other venous thrombosis and embolism; Z79.01 Long term (current) use of anticoagulants
CPT/HCPCS: 12345; 36415; 59025; 59409; 83986; 85025; 85027; 85460; 86850; 86900; 90384; 96372; 99211; J1650; J2405; J3010

== ENCOUNTER → 2022-08-09 10:50 | Outpatient (BNVA) | payer OTHER, SELFPAY | PROVIDERS: Visit Provider Obstetrics & Gynecology | DX: O09.899 Supervision of other high risk pregnancies, unspecified trimester (principal); Z3A.00 Weeks of gestation of pregnancy not specified | CPT/HCPCS: 81241; 85303; 85306 ==

== ENCOUNTER 2022-11-24 10:07 | Outpatient (CLI) | payer OTHER, SELFPAY ==
[2022-11-24 10:56] LABS: Basophils # 0.1 10^3/uL (0.0-0.1); Eosinophils # 0.1 10^3/uL (0.0-0.8); Eosinophils % 2.5 %; Hematocrit 40.3 % (37.0-47.0); Hemoglobin 12.8 g/dL (11.5-15.3); Lymphocytes # 1.8 10^3/uL (0.8-4.8); Lymphocytes % 37.9 %; Mean Corpuscular HGB Conc 31.8 g/dL (30.0-36.0); Mean Corpuscular Hemoglobin 27.2 pg (28.0-34.0); Mean Corpuscular Volume 85.6 fl (81-99); Mean Platelet Volume 10.4 fL (7.4-10.4); Monocytes # 0.4 10^3/uL (0.2-0.9); Monocytes % 7.4 %; Neutrophils # 2.47 10^3/uL (1.8-7.7); Nucleated Red Blood Cells % 0 %; Platelet Count 350 10^3/cmm (130-400); Red Blood Count 4.71 10^6/uL (4.1-5.3); Red Cell Distribution Width 14.1 % (12.1-15.1); White Blood Count 4.9 10^3/uL (4.0-10.0)
[2022-11-24 11:07] LABS: Erythrocyte Sedimentation Rate 1 mm/hr (0-15)
[2022-11-24 12:01] LABS: LAB Peripheral Smear Sent for Review
[2022-11-27 15:19] LABS: Anti-Nuclear Antibody Screen NEGATIVE (NEGATIVE)
== END 2022-11-24 10:08 | disposition home or self-care (01) ==
PROVIDERS: PCP Family Medicine; Visit Provider Family Medicine
DX: M25.50 Pain in unspecified joint (principal); Z86.718 Personal history of other venous thrombosis and embolism
CPT/HCPCS: 36415; 80503; 85025; 85651; 86038

== ENCOUNTER 2022-11-27 07:38 | Outpatient (CLI) | payer OTHER, SELFPAY ==
[2022-11-28 23:15] LABS: Lupus Hexagonal Phas Confirm NEGATIVE (NEGATIVE)
[2022-11-28 23:42] LABS: PTT-LA-Screen 41 sec (< OR = 40)
== END 2022-11-27 07:39 | disposition home or self-care (01) ==
PROVIDERS: PCP Family Medicine; Visit Provider Family Medicine
DX: O22.30 Deep phlebothrombosis in pregnancy, unspecified trimester (principal); M25.50 Pain in unspecified joint
CPT/HCPCS: 36415; 85613; 85730

== ENCOUNTER → 2023-10-09 14:16 | Outpatient (BNVA) | payer OTHER, SELFPAY | PROVIDERS: PCP Family Medicine; Visit Provider Family Medicine | DX: O09.899 Supervision of other high risk pregnancies, unspecified trimester (principal); R53.83 Other fatigue; Z3A.00 Weeks of gestation of pregnancy not specified | CPT/HCPCS: 80307; 81000; 84144; 84443; 84702; 85025; 86592; 86705; 86706; 86762; 86850; 86900; 87086; 87340; 87491; 87591; 87806 ==

== ENCOUNTER 2023-10-26 07:04 | Outpatient (CLI) | payer OTHER, SELFPAY ==
--- NOTE | 2023-10-26 07:15 | US_ITS ---
WS: [id number] EARLY OBSTETRICAL ULTRASOUND (<14 WEEKS). HISTORY: Dating US - in next 1-2 weeks COMPARISON: None available. Single intrauterine gestational sac is identified. Cardiac activity at 164 BPM. Olean-rump length abhishek sures 3.7 cm which corresponds to a gestation of 10w4d. Normal-appearing yolk sac and amnion demonstr ated. Moderate subchorionic hemorrhage. Complex subchorionic hemorrhage measures 1.9 x 1.5 x 2.6 cm. No free fluid. Normal size ovaries with no mass. IMPRESSION: 1. Single intrauterine gestation of 10 weeks 4 days with an EDC of 05/19/2024. 2. Moderate-sized subchorionic hemorrhage. 3. Normal cardiac activity.
== END 2023-10-26 07:05 | disposition home or self-care (01) ==
LOC: RAD 07:13
PROVIDERS: PCP Family Medicine; Visit Provider Family Medicine
DX: O09.91 Supervision of high risk pregnancy, unspecified, first trimester (principal); Z3A.10 10 weeks gestation of pregnancy
CPT/HCPCS: 76801

== ENCOUNTER 2023-11-16 06:59 | Outpatient (CLI) | payer OTHER, SELFPAY ==
--- NOTE | 2023-11-16 07:15 | US_ITS ---
WS: [email or web address] Limited obstetrical ultrasound. HISTORY: Evaluate subchorionic bleed. COMPARISON: 10/26/2023. Single intrauterine gestation is identified in breech position. Cervix is closed. Placenta developing anteriorly. Normal cardiac activity at 167 bpm. Subchorionic hemorrhage towards the superior gestati onal sac is reidentified measuring 2.5 x 0.5 cm. No increase in size. Hemorrhage is slightly decrease d in size. Normal amniotic fluid. IMPRESSION: 1. Slight decrease in size of the previously described subchorionic hemorrhage. 2. Normal cardiac activity.
== END 2023-11-16 07:00 | disposition home or self-care (01) ==
LOC: RAD 06:59
PROVIDERS: PCP Family Medicine; Visit Provider Family Medicine
DX: O20.8 Other hemorrhage in early pregnancy (principal); Z3A.00 Weeks of gestation of pregnancy not specified
CPT/HCPCS: 76815

== ENCOUNTER 2024-01-11 07:59 | Outpatient (CLI) | payer OTHER, SELFPAY ==
--- NOTE | 2024-01-11 08:00 | US_ITS ---
WS: [email or web address] OBSTETRICAL ULTRASOUND COMPLETE HISTORY: Screening ultrasound. COMPARISON: 10/16/2024, 11/16/2023 Single intrauterine gestation in Cephalic presentation. Cervix is Closed and normal length. Cervical length is 3.4 cm. Normal amount of amniotic fluid surrounds the fetus. Placenta: Anterior, no previa or abruption. Placenta grade 1 Heart: 150 BPM. Four chambers are identified. RIGHT and LEFT outflow tracts are unremarkable. Anatomy: Intracranial structures and spine are normal. kidneys, stomach and urinary bladd er are unremarkable. Abdominal wall, three-vessel cord and cord insertion site are normal. 4 extremities are present. profile: Unremarkable. Gender: Male. measurements: BPD = 5.4 cm = 22w3d; HC = 20.6 cm = 22w5d; AC = 17.4 cm = 22w2d; FL = 3.9 cm = 22w3d; EFW: 499.9 g. Biometry is internally concordant. AGA by ultrasound: 22w2d ARCENIO by ultrasound: 05/14/2024 IMPRESSION: 1. Single intrauterine gestation of 22w2d with an ARCENIO of 05/14/2024. Appropriate growth since the rst trimester ultrasound. 2. Unremarkable screening survey of anatomy.
== END 2024-01-11 08:00 | disposition home or self-care (01) ==
LOC: RAD 07:59
PROVIDERS: PCP Family Medicine; Visit Provider Family Medicine
DX: O09.91 Supervision of high risk pregnancy, unspecified, first trimester (principal); Z3A.22 22 weeks gestation of pregnancy
CPT/HCPCS: 76805

== ENCOUNTER 2024-03-07 08:30 | Oncology outpatient (recurring) (ONCR) | payer OTHER, SELFPAY ==
[2024-03-07 08:25] VITALS: BP 107/64; PULSE 88; RESP 16; TEMP 36.7; O2SAT 98
[2024-03-07] MEDS: RHO(D) IMMUNE GLOBULIN 1,500 UNIT/2 ML SYRINGE 1500 UNIT IM (08:25)
== END 2024-04-04 23:59 | disposition home or self-care (01) ==
PROVIDERS: PCP Family Medicine; Visit Provider Family Medicine
DX: O09.92 Supervision of high risk pregnancy, unspecified, second trimester (principal); Z53.9 Procedure and treatment not carried out, unspecified reason
CPT/HCPCS: 36415; 82950; 86850; 86900; 96372

== ENCOUNTER → 2024-04-02 10:13 | Outpatient (BNVA) | payer OTHER, SELFPAY | PROVIDERS: PCP Family Medicine; Visit Provider Family Medicine | DX: Z51.81 Encounter for therapeutic drug level monitoring (principal); O09.93 Supervision of high risk pregnancy, unspecified, third trimester; Z3A.00 Weeks of gestation of pregnancy not specified | CPT/HCPCS: 85025 ==

== ENCOUNTER → 2024-05-02 11:06 | Outpatient (BNVA) | payer OTHER, SELFPAY | PROVIDERS: PCP Family Medicine; Visit Provider Family Medicine | DX: Z34.90 Encounter for supervision of normal pregnancy, unspecified, unspecified trimester (principal); Z3A.00 Weeks of gestation of pregnancy not specified | CPT/HCPCS: 87081 ==

== ENCOUNTER 2024-05-08 02:59 | Inpatient (IN) | payer OTHER, SELFPAY ==
[2024-05-08] VITALS (16 sets, daily range): BP systolic 106–128; BP diastolic 56–75; PULSE 56–75; RESP 16–18; TEMP 36.4–36.9; O2SAT 96; BMI 26.8
[2024-05-08 03:07] LABS: Basophils # 0.1 10^3/uL (0.0-0.1); Basophils % 0.6 %; Eosinophils # 0.3 10^3/uL (0.0-0.8); Eosinophils % 2.3 %; Hematocrit 31.7 % (36-47); Lymphocytes # 2.9 10^3/uL (0.8-4.8); Lymphocytes % 25.3 %; Mean Corpuscular HGB Conc 31.5 g/dL (30-55); Mean Corpuscular Hemoglobin 24.6 pg (27-33); Mean Corpuscular Volume 77.9 fl (85-98); Mean Platelet Volume 10.9 fL (7.4-10.4); Monocytes # 0.8 10^3/uL (0.2-0.9); Monocytes % 6.7 %; Neutrophils # 7.22 10^3/uL (1.8-7.7); Neutrophils % 64.2 %; Nucleated Red Blood Cells % 0 %; Platelet Count 370 10^3/cmm (157-399); Red Blood Count 4.07 10^6/uL (3.85-5.65); Red Cell Distribution Width 14.5 % (12.1-15.1); White Blood Count 11.25 10^3/uL (3.29-11.43)
[2024-05-08] MEDS: dextrose 5%-lactated ringers 1,000 ML 125 ML IV (03:09)
--- NOTE | 2024-05-08 03:24 | P.HP_ITS ---
Providers/Chief Complaint 2 Primary Care Provider: Geo Cobian MD Chief Complaint: Contractions History of Present Illness Sandy Colon is a 28 year old @ 37.5 wks by LMP c/w 10 wk US. Preg c/b h/o DVT at 20 wks during prior now on lovenox for prophylaxis, Subchorionic hemorrhage in 1st TM, anemia. The patient began having contractions on the evening of 05/07/2024 approximately 7 PM. She was able to get some sleep until about 11 PM when her contractions became more intense. Around midnight they were every 2 to 3 minutes. She had a mild amount of bloody show. Her contractions persisted and became more intense, so she presented to labor and delivery triage around 2:45 AM. In triage she was noted to be 7 to 8 cm dilation with a bulging bag of fluid. She took her last dose of Lovenox on 05/06/2024. Patient denies any chest pains, shortness of breath, diarrhea, constipation, dysuria, leakage of fluid. Medications/Allergies Home Medications Medication Instructions Recorded Confirmed Last Taken Type HFR53-MR 400 mcg-om3 35 mg-dha 25 1 tab PO DAILY 03/01/22 05/02/24 06/27/22 History mg-epa 5 mg-fish oil chewable tablet enoxaparin 40 mg/0.4 mL 40 mg (0.4 mL) SUBCUT DAILY #30 mL 10/09/23 05/02/24 Unknown Rx subcutaneous syringe (Lovenox) levomefolate calcium 15 mg tablet 15 mg PO DAILY #30 tabs 10/15/23 05/02/24 Unknown Rx Allergies Allergy/AdvReac Type Severity Reaction Status Date / Time No Known Allergies Allergy Verified 08/09/22 10:27 PFSH Acute 2 PFSH: Surgical History No significant past surgical history Family History Family/Other Breast cancer maternal aunt, diagnosed in her 50s Brother Diabetes Two brothers both with Type 1 DM in their teens Sister Diabetes Father Hyperlipidemia Mother Rheumatoid arthritis Denies family history of Colon cancer Ovarian cancer Heart disease Hypertension Uterine cancer Thyroid disease Stroke Social History Smoking and tobacco/nicotine status: never used tobacco/nicotine Alcohol intake: never Substance/Drug Use: never Current occupation: Cutter Operator Vitals/I&O/Wt Last Vital Signs Pulse 69 05/08/24 02:53 BP 108/69 05/08/24 02:53 Physical Exam 2 Narrative: General: Alert and oriented x3 Eyes: Pupils equal round and reactive to light and accommodation Mouth: Mucous membranes moist, pharynx non-erythematous Cardiac: Regular rate and rhythm without murmurs Lungs: Clear to auscultation bilaterally without wheezes, crackles or rhonchi Abdomen: Soft, non-tender, fundus consistent with gestational age Extremities: Trace edema in the bilateral lower extremities Data 05/08/24 02:58 A&P Assessment and plan (1) Supervision of high risk , unspecified, third trimester: The patient is in spontaneous labor and we will continue with routine intrapartum management. Currently heart tones are in the mid 130s with moderate variability and good accelerations with a category 1 tracing. Her contractions are every 4 minutes. GBS is negative. The patient does have a history of DVT during her prior and has been on Lovenox for prophylaxis. Her last dose was on 05/06/2024. Proceed with intrapartum management of labor and delivery. (2) DVT complicating : (3) Rh negative state in antepartum period: Attestations 2 Medical Necessity Statement*: The patient will be here for greater than 2 midnights due to routine intrapartum and management of labor and delivery. Coding Level of Care Code Acute Code for Chg Fwd Diagnoses Supervision of high risk , unspecified, third trimester O09.93 DVT complicating O22.30 Rh negative state in antepartum period O26.899; Z67.91
[2024-05-08] MEDS: oxytocin 30 UNIT/500 ML BAG 600 UNIT IV (04:10)
[2024-05-08] MEDS: lidocaine 2% INJ 20 mL INJECTION (04:15)
--- NOTE | 2024-05-08 05:22 | P.PCNOB_ITS ---
Delivery Note: Date of delivery: May 08, 2024 Pre-delivery diagnoses: 1. Intrauterine at 37.5 weeks gestation 2. History of DVT during prior pregnanc y currently on Lovenox for prophylaxis 3. Subchorionic hemorrhage in first tri mester 4. Anemia Post-delivery diagnoses: 1. Intrauterine status post s pontaneous vaginal delivery at 37.5 weeks gestation 2. History of DVT during prior pregnanc y currently on Lovenox for prophylaxis 3. Subchorionic hemorrhage in first tri mester 4. Anemia 5. Delivery of healthy male zarina mao 9 pounds 2 ounces with Apgars of 6 and 9 Procedure: Spontaneous vaginal delivery Second-degree vaginal laceration with repair Delivering Physician: Geo Cobian MD Estimated blood loss (mL): 100 Findings: 1. Intact placenta with central umbilic al cord insertion site 2. Healthy infant male weighing 9 pound s 2 ounces with Apgars of 6 and 9 Pre-Delivery Course: Sandy Colon is a 28 year old G3 now P2 status post spontaneous vaginal delivery @ 37.5 wks by LMP c/w 10 wk US. Preg c/b h/o DVT at 20 wks during prior now on lovenox for prophylaxis, Subchorionic hemorrhage in 1st TM, anemia. The patient began having contractions on the evening of 05/07/2024 at approximately 7 PM. She was able to get some sleep until about 11 PM when her contractions became more intense. Around midnight they were every 2 to 3 minutes. She had a mild amount of bloody show. Her contractions persisted and became more intense, so she presented to labor and delivery triage around 2:45 AM. In triage she was noted to be 7 to 8 cm dilation with a bulging bag of fluid. She took her last dose of Lovenox on 05/06/2024. AROM was performed at 3:37 AM on 05/08/2024 to help augment the labor process. The patient did not want to have an epidural. The patient was complete by 3:56 AM on 05/08/2024. Delivery: The patient began pushing at 3:56 AM on 05/08/2024. She pushed well and the infant delivered in the OA position at 4:04 AM on 05/08/2024. A nuchal cord was present, but was not able to be reduced and the patient continued to push, so th e was delivered through the nuchal cord. The left shoulder was the anterior shoulder and it delivered with mild downward pressure. The rest of the infant delivered without complication. The 's mouth and nose was bulb suction by myself and the infant took a couple of breaths shortly after delivery. The infant was placed on the mother's chest where the nurses were waiting to care for him. The cord was clamped by myself after approximately 40 seconds and cut by the 's father. It was cut sooner than usual as the was weak in terms of its initial breathing. He was taken to the warmer and started to cry on his own without needing further resuscitation. Cord blood was obtained. The cord was then drained of blood and traction was placed on umbilical cord. The placenta delivered without complication at 4:10 AM on 05/08/2024. The placenta was noted to be intact with a central umbilical cord insertion site. IV Pitocin was bolused. The cervix was inspected and no lacerations were noted. Uterine massage was carried out. The vaginal wall was inspected and a second-degree perineal laceration was noted. 1% lidocaine was placed for pain control and the laceration was repaired using 3-0 Vicryl in a running fashion. The patient tolerated this well. A rectal exam was done and no sutures were noted in the rectal vault. Currently both the mother and infant are doing well. History History History 3 Term 2 0 Miscarriages/Ectopic 1 Living Children 2 Past Pregnancies Del. Date GA/Weeks Outcome Route Wt Inf Gender Labor Lgth Comp. Anesth esia Location 06/29/22 39 live - full term Vaginal 8 lb 1.103 oz Mal e 12 hours 37 minutes [facility] 05/22/23 5 spontaneous 05/08/24 37 live - full term Vaginal 9 lb 2 oz Male 9 hr [facility] Delivery Date: 06/29/22 Last Updated by: Geo Cobian MD DVT, spontaneous labor, early subchorionic hemorrhage Delivery Date: 05/22/23 Last Updated by: Geo Cobian MD Early miscarriage around 5-6 weeks Delivery Date: 05/08/24 Last Updated by: Geo Cobian MD 2nd degree perineal laceration, on lovenox for DVT prophylaxis A&P Assessment and plan (1) Spontaneous vaginal delivery: Coding Level of Care Code Acute Code for Chg Fwd Diagnoses Spontaneous vaginal delivery O80
[2024-05-08] MEDS: acetaminophen 325 mg Tablet 650 MG PO (06:09)
[2024-05-08] MEDS: enoxaparin 40 mg/0.4 mL Syringe SUBCUT (09:10)
[2024-05-08] MEDS: PRENATAL VIT NO.130/IRON/FOLIC 1 EACH TABLET PO (09:10)
[2024-05-08] MEDS: ibuprofen 800 mg tablet PO ×2 (09:10→14:23)
[2024-05-08] MEDS: docusate sodium 100 mg Capsule PO (09:10)
[2024-05-08] MEDS: benzocaine-menthol 78 gm Canister 1 SPRAY TOPICAL (12:26)
[2024-05-08 16:48] LABS: Hematocrit 25.8 % (36-47); Mean Corpuscular HGB Conc 31.8 g/dL (30-55); Mean Corpuscular Hemoglobin 25.1 pg (27-33); Mean Corpuscular Volume 78.9 fl (85-98); Mean Platelet Volume 10.8 fL (7.4-10.4); Platelet Count 288 10^3/cmm (157-399); Red Blood Count 3.27 10^6/uL (3.85-5.65); Red Cell Distribution Width 14.7 % (12.1-15.1); White Blood Count 16.15 10^3/uL (3.29-11.43)
--- NOTE | 2024-05-10 07:57 | P.DS_ITS ---
Discharge Providers Date of Admission: 05/08/24 02:59 Date of Discharge: May 08, 2024 Attending Provider at Admission: Geo Cobian MD Attending Provider at Discharge: Geo Cobian MD Primary Care Provider: Geo Cobian MD Diagnoses at Discharge Discharge Diagnosis (1) Spontaneous vaginal delivery: Status: Acute Other Information Additional DC diagnoses/information: 1. Intrauterine status post spontaneous vaginal delivery at 37.5 weeks gestation 2. History of DVT during prior currently on Lovenox for prophylaxis 3. Subchorionic hemorrhage in first trimester 4. Anemia 5. Delivery of healthy infant male weighing 9 pounds 2 ounces with Apgars of 6 and 9 Reason for Visit Reason for Visit: Contractions Brief History: Sandy Colon is a 28 year old G3 now P2 status post spontaneous vaginal delivery @ 37.5 wks by LMP c/w 10 wk US. Preg c/b h/o DVT at 20 wks during prior now on lovenox for prophylaxis, Subchorionic hemorrhage in 1st TM, anemia. The patient began having contractions on the evening of 05/07/2024 at approximately 7 PM. She was able to get some sleep until about 11 PM when her contractions became more intense. Around midnight they were every 2 to 3 minutes. She had a mild amount of bloody show. Her contractions persisted and became more intense, so she presented to labor and delivery triage around 2:45 AM. In triage she was noted to be 7 to 8 cm dilation with a bulging bag of fluid. She took her last dose of Lovenox on 05/06/2024. Hospital Course Hospital Course AROM was performed at 3:37 AM on 05/08/2024 to help augment the labor process. The patient did not want to have an epidural. The patient was complete by 3:56 AM on 05/08/2024. The patient delivered at 4:04 AM on 05/08/2024. The delivery was uncomplicated. The patient had no significant complications after delivery either. She had a second-degree laceration that was repaired. Currently the patient is doing well. She is ambulating, voiding, passing gas and tolerating food by mouth. Her bleeding is decreasing well. Her pain is well-controlled. The patient w ishes to be discharged home today. All discharge instructions were discussed. The patient and her are in agreement with current plan of care. She will plan to return for recheck at 6 weeks or sooner if needed. Physical Exam Narrative: General: Alert and oriented x3 Cardiac: Regular rate and rhythm without murmurs Lungs: Clear to auscultation bilaterally without wheezes, crackles or rhonchi Abdomen: Soft, mild tenderness over uterus. The uterus is firm and 2 cm below the umbilicus. Extremities: Trace edema in the bilateral lower extremities Discharge Data Studies Completed and Pending Laboratory Results WBC 16.15 10^3/uL (3.29-11.43) H 05/08/24 16:30 RBC 3.27 10^6/uL (3.85-5.65) L 05/08/24 16:30 Hgb 8.20 g/dL (11.27-16.99) L 05/08/24 16:30 Hct 25.8 % (36-47) L 05/08/24 16:30 MCV 78.9 fl (85-98) L 05/08/24 16:30 MCH 25.1 pg (27-33) L 05/08/24 16:30 MCHC 31.8 g/dL (30-55) 05/08/24 16:30 RDW 14.7 % (12.1-15.1) 05/08/24 16:30 Plt Count 288 10^3/cmm (157-399) 05/08/24 16:30 MPV 10.8 fL (7.4-10.4) H 05/08/24 16:30 Neut % (Auto) 64.2 % 05/08/24 02:58 Lymph % (Auto) 25.3 % 05/08/24 02:58 [place] % (Auto) 6.7 % 05/08/24 02:58 Eos % (Auto) 2.3 % 05/08/24 02:58 Baso % (Auto) 0.6 % 05/08/24 02:58 Neut # (Auto) 7.22 10^3/uL (1.8-7.7) 05/08/24 02:58 Lymph # (Auto) 2.9 10^3/uL (0.8-4.8) 05/08/24 02:58 [place] # (Auto) 0.8 10^3/uL (0.2-0.9) 05/08/24 02:58 Eos # (Auto) 0.3 10^3/uL (0.0-0.8) 05/08/24 02:58 Baso # (Auto) 0.1 10^3/uL (0.0-0.1) 05/08/24 02:58 Nucleated RBC % (auto) 0 % 05/08/24 02:58 Nucleated RBCs # 0.0 /100WBC 05/08/24 02:58 Blood Type A Negative 05/08/24 02:58 Rho(D) Type Rh negative 05/08/24 02:58 Antibody Screen Positive 05/08/24 02:58 Antibody Identification No Clinically Significant ABID 05/08/24 02:58 Screen Negative (Negative) 05/08/24 16:30 Vitals Last Vital Signs Temp 98.5 F 05/08/24 19:45 Pulse 65 05/08/24 19:45 Resp 16 05/08/24 19:45 BP 111/66 05/08/24 19:45 Pulse Ox 96 05/08/24 19:45 O2 Del Method Room Air 05/08/24 19:45 Discharge Plan Discharge Patient Disposition: Home Prescriptions: Continued [id number] oil 400 mcg-35 mg -25 mg-5 mg tablet,chewable 1 tab PO DAILY enoxaparin [Lovenox] 40 mg/0.4 mL syringe 40 mg SUBCUT DAILY Qty: 30 3RF Rx Instructions: Please give equivalent of 30 day supply levomefolate calcium 15 mg tablet 15 mg PO DAILY Qty: 30 6RF Discharge Orders: Discharge Order (Routine); Ordered 05/08/24 Ordered By: Geo Cobian Referrals: Geo Cobian MD [Primary Care Provider] - 6 Weeks Discharge Diet: Regular Discharge Activity: Increase activity as tolerated Patient Instructions: Depression (GEN), Bleeding (GEN), Preeclampsia and Eclampsia After Delivery (GEN), OB Food/Drug Interaction Guide, OB Care at Home, Opioid Safety, OB [facility] - [facility], Abnormal Bleeding Activity Restrictions/Additional Instructions: Nothing per vagina for 6 weeks. Showers are recommended instead of baths for the first 6 weeks. Discharge Attestations Time Spent in Discharge Care*: greater than 30 min Quality Metrics Clinical Quality Measures [ No reported AMI, CVA or VTE this stay] Coding Level of Care Code Acute Code for Chg Fwd Diagnoses Spontaneous vaginal delivery O80
== END 2024-05-08 20:05 | disposition home or self-care (01) | DRG 807 ==
LOC: OBGYN 03:54
PROVIDERS: Admitting Provider Family Medicine; PCP Family Medicine; Visit Provider Family Medicine
DX: O99.02 Anemia complicating childbirth (principal); Z37.0 Single live birth; D64.9 Anemia, unspecified; Z3A.37 37 weeks gestation of pregnancy; O69.81X0 Labor and delivery complicated by cord around neck, without compression, not applicable or unspecified; Z86.718 Personal history of other venous thrombosis and embolism; Z79.01 Long term (current) use of anticoagulants; O70.1 Second degree perineal laceration during delivery
CPT/HCPCS: 36415; 36430; 59025; 59409; 80503; 85025; 85027; 85460; 86850; 86870; 86900; 90384; 96372; 99211; J1650; J2590; J7121

== ENCOUNTER → 2024-06-23 09:44 | Outpatient (BNVA) | payer OTHER, SELFPAY | PROVIDERS: PCP Family Medicine; Visit Provider Family Medicine | DX: Z39.2 Encounter for routine postpartum follow-up (principal) | CPT/HCPCS: 87624 ==